=== PATIENT | male | born 1955 | race Two or more races ===

== ENCOUNTER → 2024-06-25 | Outpatient (CLI) | payer MEDICARE, SELFPAY ==
[2024-06-25 13:24] LABS: Alanine Aminotransferase 36 U/L (10-49); Albumin, Serum 4.8 gm/dL (3.4-4.8); Alkaline Phosphatase 101 U/L (46-116); Aspartate Amino Transferase 24 U/L (0-34); Bilirubin,Direct 0.2 mg/dL (0.0-0.3); Bilirubin,Total 0.7 mg/dL (0.3-1.2); Cardiac Risk Estimate 3.1 RATIO (4.0-6.7); Cholesterol 163 mg/dL (132-200); HDL Cholesterol 52 mg/dL (40-60); LDL Cholesterol,Calculated 65 mg/dL (0-130); Total Protein 7.3 gm/dL (5.7-8.2); Triglycerides 231 mg/dL (30-150)
== END | disposition home or self-care (01) ==
LOC: COPL 12:18
PROVIDERS: PCP Family Medicine; Referring Provider Internal Medicine Cardiovascular Disease; Visit Provider Internal Medicine Cardiovascular Disease
DX: I10 Essential (primary) hypertension (principal); E78.5 Hyperlipidemia, unspecified; I49.9 Cardiac arrhythmia, unspecified
CPT/HCPCS: 36415; 80061; 80076

== ENCOUNTER → 2024-10-30 | Outpatient (CLI) | payer MEDICARE, SELFPAY ==
--- NOTE | 2024-10-30 10:45 | XR_ITS ---
Examination: Arterial duplex lower extremity study. Date and time of exam: October 30, 2024 1013 hours INDICATIONS: Nonhealing wounds in both lower legs beginning 2 months ago, diabetes history Findings: Duplex sonographic imaging of the lower extremity arteries using B-mode/Parra scale imaging and Doppler spectral analysis and color flow. Ankle brachial indices have been recorded. Right common femoral artery demonstrates triphasic flow. Right superficial femoral artery demonstrates triphasic flow. Right popliteal artery demonstrates triphasic flow. Right posterior tibial artery demonstrated triphasic flow. Right ankle/brachial index is 0.9. Left common femoral artery demonstrates triphasic flow. Left superficial femoral artery demonstrates triphasic flow. Left popliteal artery demonstrates triphasic flow. Left posterior tibial artery demonstrated triphasic flow. Left ankle/brachial index is 0.9. Impression: Bilateral peripheral obstructive arterial disease Consider correlation with CTA abdominal aorta iliofemoral post intravenous contrast
== END | disposition home or self-care (01) ==
PROVIDERS: PCP Family Medicine; Referring Provider Family Medicine; Visit Provider Family Medicine
DX: I73.9 Peripheral vascular disease, unspecified (principal)
CPT/HCPCS: 93925

== ENCOUNTER → 2024-11-10 | Outpatient (CLI) | payer MEDICARE, SELFPAY ==
[2024-11-10 11:09] LABS: Alanine Aminotransferase 30 U/L (10-49); Albumin, Serum 4.4 gm/dL (3.4-4.8); Albumin/Globulin Ratio 1.7 (1.2-2.2); Alkaline Phosphatase 99 U/L (46-116); Anion Gap 12 (7-16); BUN/Creatinine Ratio 10 Ratio (12-20); Bilirubin,Total 0.6 mg/dL (0.3-1.2); Blood Urea Nitrogen 10 mg/dL (9-23); Calcium 9.5 mg/dL (8.3-10.6); Calcium (Corrected) 9.5 mg/dL (8.5-10.1); Carbon Dioxide 27.6 mMol/L (20.0-31.0); Cardiac Risk Estimate 2.9 RATIO (4.0-6.7); Chloride 105 mMol/L (98-107); Cholesterol 145 mg/dL (132-200); Free T4 (Free Thyroxine) 1.04 ng/dL (0.89-1.76); Globulin 2.6 gm/dL (2.3-3.5); Glucose 117 mg/dL (74-106); HDL Cholesterol 50 mg/dL (40-60); LDL Cholesterol,Calculated 45 mg/dL (0-130); Osmolality,Calculated 288 (275-295); Potassium 4.2 mMol/L (3.4-5.1); Sodium 145 mMol/L (136-145); Thyroid Stimulating Hormone 1.79 uIU/mL (0.55-4.78); Triglycerides 252 mg/dL (30-150); eGFR > 60 See Note
== END | disposition home or self-care (01) ==
LOC: COPL 09:46
PROVIDERS: PCP Family Medicine; Referring Provider Family Medicine; Visit Provider Family Medicine
DX: Z13.1 Encounter for screening for diabetes mellitus (principal)
CPT/HCPCS: 36415; 80053; 80061; 84439; 84443

== ENCOUNTER → 2024-11-11 | Outpatient (CLI) | payer MEDICARE, SELFPAY ==
--- NOTE | 2024-11-11 10:30 | XR_ITS ---
Examination: CTA abdominal aorta iliofemoral runoff. 2-D sagittal coronal reconstructions. 3-D reconstructions, vascular Exam date and time: November 11, 2024 10:30 AM INDICATIONS: Diagnosis peripheral vascular disease, nonhealing sores distal left lower leg Months, bilateral peripheral obstructive arterial disease on arterial Doppler study October 30, 2024 Technique: Multiple CTA images of the abdominal aorta iliofemoral runoff arterial vessels, 2.0 mm slice thickness, post intravenous administration 130 cc [id number] 2-D sagittal coronal reconstructions. 3-D reconstructions, vascular 3-D postprocessing, including vascular maximum intensity projection images, 3-D volume rendering Low dose protocols were performed. One or more of the following dose reduction techniques were used; automated exposure control, adjustment of the mA and/or KV according to patient size, use of iterative reconstruction technique. Findings: Fatty infiltration throughout the liver no focal liver or splenic lesions Absent gallbladder No pancreatic or adrenal mass No renal or ureteral calculi, no hydronephrosis Soft tissue mass below the right kidney, coronal image 96, axial image 146 measuring 10 x 7.5 cm Colonic diverticulosis Urinary bladder intact Prostate calcifications Abdominal aortic calcification no aneurysmal dilatation No significant stenoses celiac superior mesenteric or renal arteries Common iliac and external iliac common femoral arteries demonstrate no significant stenoses Right superficial femoral artery popliteal artery demonstrate no critical stenoses There is filling of the anterior posterior tibial arteries on the right to the ankle Left superficial femoral popliteal arteries intact Anterior posterior tibial arteries do fill to the ankle IMPRESSION: No significant arterial stenoses Soft tissue mass below the right kidney, 10 x 7.5 cm, recommend abdominal sonography follow-up.
== END | disposition home or self-care (01) ==
LOC: CCTX 10:10
PROVIDERS: PCP Family Medicine; Referring Provider Family Medicine; Visit Provider Family Medicine
DX: R19.00 Intra-abdominal and pelvic swelling, mass and lump, unspecified site (principal); K57.30 Diverticulosis of large intestine without perforation or abscess without bleeding; N42.89 Other specified disorders of prostate; I70.0 Atherosclerosis of aorta
CPT/HCPCS: 75635; A4649; Q9967

== ENCOUNTER → 2024-11-17 | Outpatient (CLI) | payer MEDICARE, SELFPAY ==
--- NOTE | 2024-11-17 | XR_ITS ---
Examination: Abdomen sonogram, complete Date and time of exam: November 17, 2024 0847 hours INDICATIONS: CT examination November 11, 2024 soft tissue mass below the right kidney 10 x 7.5 cm. Technique: Multiple real-time grayscale transabdominal sonographic images of the abdomen have been obtained. Findings: Absent gallbladder Normal common bile duct 0.3 cm Pancreatic head 3.7 cm Aorta not enlarged Liver 18.7 cm fatty infiltration Normal hepatopedal portal venous oh Patent IVC Right kidney 12.5 cm cortex 2.0 cm Lower pole cyst 10.1 cm Left kidney 11.4 cm cortex 1.8 cm Moderate bilateral renal parenchymal scar formation Spleen 8.9 cm IMPRESSION: Prominent pancreatic head Large cyst lower pole right kidney, 10.1 x 5.3 x 6.1 cm
== END | disposition home or self-care (01) ==
LOC: CDIM 07:49
PROVIDERS: PCP Family Medicine; Referring Provider Family Medicine; Visit Provider Family Medicine
DX: N28.1 Cyst of kidney, acquired (principal); N28.89 Other specified disorders of kidney and ureter; K76.0 Fatty (change of) liver, not elsewhere classified
CPT/HCPCS: 76700